=== PATIENT | female | born 1955 | race Caucasian/White ===

== ENCOUNTER → 2017-09-01 | Outpatient (CLI) | payer OTHER ==
[~2017-09-01] MED LIST: ASCORBIC ACID500 M3 PO; BENAZEPRIL HCL20 MG PO; CALCIUM 500 MG1 EACH PO; LIPITOR20 MG PO; METAMUCIL PACK3.4 GM PO; NORVASC5 MG PO
== END | disposition home or self-care (01) ==
LOC: OPR 07:17 → EDSTATUS 08:00 → OPR 08:00
PROC: 0BBJ3ZX Excision of Left Lower Lung Lobe, Percutaneous Approach, Diagnostic (ICD-10-PCS; principal; 2017-09-01)
PROC: BB241ZZ Computerized Tomography (CT Scan) of Bilateral Lungs using Low Osmolar Contrast (ICD-10-PCS; principal; 2017-09-01)
DX: J98.4 Other disorders of lung (principal); C50.812 Malignant neoplasm of overlapping sites of left female breast; Z17.0 Estrogen receptor positive status [ER+]; I10 Essential (primary) hypertension; E78.5 Hyperlipidemia, unspecified; Z79.82 Long term (current) use of aspirin; Z85.3 Personal history of malignant neoplasm of breast
CPT/HCPCS: 71045; 77012; 88305; 88312; 88341 TC; 88342 TC; J3010

== ENCOUNTER → 2017-09-14 | Outpatient (CLI) | payer OTHER ==
[~2017-09-14] MED LIST changes: +CLARITIN5 MG PO
== END | disposition home or self-care (01) ==
LOC: OPR 07:34 → EDSTATUS 08:00 → OPR 08:00
PROC: 0BBJ3ZX Excision of Left Lower Lung Lobe, Percutaneous Approach, Diagnostic (ICD-10-PCS; principal; 2017-09-14)
DX: C7A.090 Malignant carcinoid tumor of the bronchus and lung (principal); C50.812 Malignant neoplasm of overlapping sites of left female breast; Z17.0 Estrogen receptor positive status [ER+]; I10 Essential (primary) hypertension; E78.5 Hyperlipidemia, unspecified; M85.80 Other specified disorders of bone density and structure, unspecified site; Z80.3 Family history of malignant neoplasm of breast; Z88.5 Allergy status to narcotic agent
CPT/HCPCS: 71045; 77012; 87070; 87075; 87205; 88305; 88341 TC; 88342 TC; J3010

== ENCOUNTER 2017-10-04 07:40 | Day surgery (SDC) | payer OTHER ==
[~2017-10-04] VITALS: Ht 154.9 cm; Wt 69.0 kg
[~2017-10-04 07:40] MED LIST changes: +ASPIRIN81 M2 PO; +CLARITIN,ALAVAR10 MG PO; -CLARITIN5 MG PO; -LIPITOR20 MG PO; +MULTIPLE VITAM1 EACH PO; +VITAMIN E400 UNIT PO; +ZOCOR20 MG PO
[2017-10-04 08:44] VITALS: BP 148/70
[2017-10-04] MEDS ORDERED: HYDROCODON-ACE1 EAC7 PO (15:20)
[2017-10-04 16:05] VITALS: BP 135/64
[2017-10-04 17:20] VITALS: BP 123/72
== END 2017-10-04 17:45 | disposition home or self-care (01) ==
LOC: SDC 07:40 → NUC 07:40 → SDC 10:06
DX: C50.812 Malignant neoplasm of overlapping sites of left female breast (principal); Z17.0 Estrogen receptor positive status [ER+]; I10 Essential (primary) hypertension; Z79.82 Long term (current) use of aspirin; Z80.3 Family history of malignant neoplasm of breast; Z88.5 Allergy status to narcotic agent
CPT/HCPCS: 78195; 78999; 88305; 88307; 88342 TC; A9541; J0690; J1100; J1170; J1885; J2250; J2405; J3010; S0020

== ENCOUNTER 2017-11-01 05:57 | Day surgery (SDC) | payer OTHER ==
[~2017-11-01] VITALS: Ht 154.9 cm; Wt 66.7 kg
[~2017-11-01 05:57] MED LIST changes: +HYDROCODON-ACE1 EAC7 PO
[2017-11-01 06:21] VITALS: BP 118/68
[2017-11-01 10:05] VITALS: BP 125/74
[2017-11-01 10:58] VITALS: BP 121/63
== END 2017-11-01 11:15 | disposition home or self-care (01) ==
LOC: SDC 05:57
PROC: 0HBU0ZZ Excision of Left Breast, Open Approach (ICD-10-PCS; principal; 2017-11-01)
DX: C50.912 Malignant neoplasm of unspecified site of left female breast (principal); Z17.0 Estrogen receptor positive status [ER+]; I10 Essential (primary) hypertension; Z79.82 Long term (current) use of aspirin; Z88.5 Allergy status to narcotic agent
CPT/HCPCS: 88305; 88342 TC; J0131; J0690; J2250; J2405; J3010; Q0175; S0020